=== PATIENT | female | born 1990 | race Hispanic/Latino ===

== ENCOUNTER 2018-05-22 15:49 | Emergency (ER) | payer OTHER ==
[2018-05-22 16:28] LABS: Basophils # (Auto) 0.1 K/mm3 (0.0-0.1); Basophils % (Auto) 0.9 % (0.0-1.8); Eosinophils # (Auto) 0.5 K/mm3 (0.0-0.4); Eosinophils % (Auto) 7.1 % (0.0-4.3); Hematocrit 38.3 % (30.3-42.9); Hemoglobin 12.9 gm/dl (10.1-14.3); Lymphocytes # (Auto) 2.2 K/mm3 (1.2-5.4); Lymphocytes % (Auto) 34.7 % (13.4-35.0); Mean Corpuscular HGB Conc 34 % (30-34); Mean Corpuscular Hemoglobin 31 pg (28-32); Mean Corpuscular Volume 91 fl (79-97); Monocytes # (Auto) 0.5 K/mm3 (0.0-0.8); Platelet Count 308 K/mm3 (140-440); Red Blood Count 4.21 M/mm3 (3.65-5.03); Red Cell Distribution Width 14.8 % (13.2-15.2)
[2018-05-22 16:37] LABS: BUN/Creatinine Ratio 20; Blood Urea Nitrogen 12 mg/dL (7-17); Calcium 9.1 mg/dL (8.4-10.2); Hemolysis Index 8
--- NOTE | 2018-05-22 17:37 | Emergency Department Report ---
ED Psych HPI - General Chief Complaint: Psych Stated Complaint: SUICIDAL Time Seen by Provider: 05/22/18 17:28 Source: patient Mode of arrival: Ambulatory Limitations: No Limitations - History of Present Illness Initial Comments: 27 year old with a past med hx of schizophrenia, bipolar, and depression the hospital for suicidal homicidal ideation. Just discharged from [place] 2 days ago. No physical complaints reported. She does not have a place to live. Her family is primarily an [place]. She has been in the [place] area for just a few months. She is compliant with her medications Abilify and trazodone without relief. MD Complaint: suicidal ideation, feels depressed Associated Psychiatric Symptoms: homicidal ideation (wants to eat people), visual hallucinations (people telling her to sell souls) - Related Data Allergies Allergy/AdvReac Type Severity Reaction Status Date / Time haloperidol [From Haldol] Allergy Unknown Verified 05/22/18 15:58 ED Review of Systems ROS: Stated complaint: SUICIDAL Other details as noted in HPI Comment: All other systems reviewed and negative ED Past Medical Hx - Past Medical History Previous Medical History?: Yes Hx Psychiatric Treatment: Yes (schizophrenia, bipolar, depression) - Surgical History Past Surgical History?: Yes Additional Surgical History: x 1 - Social History Smoking Status: Current Every Day Smoker Substance Use Type: Methamphetamines ED Physical Exam - General Limitations: No Limitations - Other Other exam information: General: No limitations, patient is alert in no acute distress Head exam: Atraumatic, normocephalic Eyes exam: Normal appearance ENT: Moist mucous membrane Neck exam: Normal inspection, full range of motion Respiratory exam: Clear to auscultation bilateral, no wheezes, rales, crackles Cardiovascular: Normal rate and rhythm, normal heart sounds Abdomen: Soft, nondistended, and nontender, with normal bowel sounds, no rebound, or guarding Extremity: Full range of motion normal inspection no deformity Back: Normal Inspection, full range of motion, no tenderness Neurologic: Alert, oriented x3, cranial nerves intact, no motor or sensory deficit Psychiatric: normal affect, normal mood Skin: Warm, dry, intact ED Course Vital Signs 05/22/18 05/22/18 05/22/18 15:58 16:50 19:25 Temperature 97.7 F 97.9 F Pulse Rate 92 H 98 H Respiratory 18 16 18 Rate Blood Pressure 135/85 Blood Pressure 110/71 [Left] O2 Sat by Pulse 96 98 Oximetry ED Medical Decision Making - Lab Data Result diagrams: 05/22/18 16:13 05/22/18 16:13 Lab Results 05/22/18 05/22/18 05/22/18 Range/Units 16:13 16:13 16:13 WBC (4.5-11.0) K/mm3 RBC (3.65-5.03) M/mm3 Hgb (10.1-14.3) gm/dl Hct (30.3-42.9) % MCV (79-97) fl MCH (28-32) pg MCHC (30-34) % RDW (13.2-15.2) % Plt Count (140-440) K/mm3 Lymph % (Auto) (13.4-35.0) % [place] % (Auto) (0.0-7.3) % Eos % (Auto) (0.0-4.3) % Baso % (Auto) (0.0-1.8) % Lymph # (1.2-5.4) K/mm3 [place] # (0.0-0.8) K/mm3 Eos # (0.0-0.4) K/mm3 Baso # (0.0-0.1) K/mm3 Seg Neutrophils % (40.0-70.0) % Seg Neutrophils # (1.8-7.7) K/mm3 Sodium 138 (137-145) mmol/L Potassium 4.1 (3.6-5.0) mmol/L Chloride 101.3 (98-107) mmol/L Carbon Dioxide 25 (22-30) mmol/L Anion Gap 16 mmol/L BUN 12 (7-17) mg/dL Creatinine 0.6 L (0.7-1.2) mg/dL Estimated GFR > 60 ml/min BUN/Creatinine Ratio 20 % Glucose 88 (65-100) mg/dL Calcium 9.1 (8.4-10.2) mg/dL HCG, Qual (Negative) Urine Bilirubin (Negative) Urine RBC (Auto) (0.0-6.0) /HPF U Epithel Cells (Auto) (0-13.0) /HPF Salicylates < 0.3 L (2.8-20.0) mg/dL Acetaminophen < 5.0 L (10.0-30.0) ug/mL Plasma/Serum Alcohol (0-0.07) % 05/22/18 05/22/18 05/22/18 Range/Units 16:13 16:13 16:13 WBC 6.3 (4.5-11.0) K/mm3 RBC 4.21 (3.65-5.03) M/mm3 Hgb 12.9 (10.1-14.3) gm/dl Hct 38.3 (30.3-42.9) % MCV 91 (79-97) fl MCH 31 (28-32) pg MCHC 34 (30-34) % RDW 14.8 (13.2-15.2) % Plt Count 308 (140-440) K/mm3 Lymph % (Auto) 34.7 (13.4-35.0) % [place] % (Auto) 8.0 H (0.0-7.3) % Eos % (Auto) 7.1 H (0.0-4.3) % Baso % (Auto) 0.9 (0.0-1.8) % Lymph # 2.2 (1.2-5.4) K/mm3 [place] # 0.5 (0.0-0.8) K/mm3 Eos # 0.5 H (0.0-0.4) K/mm3 Baso # 0.1 (0.0-0.1) K/mm3 Seg Neutrophils % 49.3 (40.0-70.0) % Seg Neutrophils # 3.1 (1.8-7.7) K/mm3 Sodium (137-145) mmol/L Potassium (3.6-5.0) mmol/L Chloride (98-107) mmol/L Carbon Dioxide (22-30) mmol/L Anion Gap mmol/L BUN (7-17) mg/dL Creatinine (0.7-1.2) mg/dL Estimated GFR ml/min BUN/Creatinine Ratio % Glucose (65-100) mg/dL Calcium (8.4-10.2) mg/dL HCG, Qual Negative (Negative) Urine Bilirubin (Negative) Urine RBC (Auto) (0.0-6.0) /HPF U Epithel Cells (Auto) (0-13.0) /HPF Salicylates (2.8-20.0) mg/dL Acetaminophen (10.0-30.0) ug/mL Plasma/Serum Alcohol < 0.01 (0-0.07) % 05/22/18 Range/Units 23:18 WBC (4.5-11.0) K/mm3 RBC (3.65-5.03) M/mm3 Hgb (10.1-14.3) gm/dl Hct (30.3-42.9) % MCV (79-97) fl MCH (28-32) pg MCHC (30-34) % RDW (13.2-15.2) % Plt Count (140-440) K/mm3 Lymph % (Auto) (13.4-35.0) % [place] % (Auto) (0.0-7.3) % Eos % (Auto) (0.0-4.3) % Baso % (Auto) (0.0-1.8) % Lymph # (1.2-5.4) K/mm3 [place] # (0.0-0.8) K/mm3 Eos # (0.0-0.4) K/mm3 Baso # (0.0-0.1) K/mm3 Seg Neutrophils % (40.0-70.0) % Seg Neutrophils # (1.8-7.7) K/mm3 Sodium (137-145) mmol/L Potassium (3.6-5.0) mmol/L Chloride (98-107) mmol/L Carbon Dioxide (22-30) mmol/L Anion Gap mmol/L BUN (7-17) mg/dL Creatinine (0.7-1.2) mg/dL Estimated GFR ml/min BUN/Creatinine Ratio % Glucose (65-100) mg/dL Calcium (8.4-10.2) mg/dL HCG, Qual (Negative) Urine Bilirubin Neg (Negative) Urine RBC (Auto) 1.0 (0.0-6.0) /HPF U Epithel Cells (Auto) 4.0 (0-13.0) /HPF Salicylates (2.8-20.0) mg/dL Acetaminophen (10.0-30.0) ug/mL Plasma/Serum Alcohol (0-0.07) % - Medical Decision Making suicidal 1013/transfer form signed uds + for amphetamine - Differential Diagnosis suicidal, homicidal, schizophrenia, psychosis, medication noncompliance Critical Care Time: No Critical care attestation.: If time is entered above; I have spent that time in minutes in the direct care of this critically ill patient, excluding procedure time. ED Disposition Clinical Impression: Suicidal ideations, Psychosis, Homicidal ideation, Schizophrenia, Medical clearance for psychiatric admission, Amphetamine abuse Disposition: DC/TX-65 PSY HOSP/PSY UNIT Is pt being admited?: No Does the pt Need Aspirin: No Condition: Stable Time of Disposition: 00:57
[2018-05-22] MEDS ORDERED: NACL 0.9% 1000 ML 1,000 ML IV ONE (23:24)
[2018-05-23 00:15] LABS: Bilirubin,Urine NEG (Negative); Blood,Urine NEG (Negative); Color,Urine Yellow (Yellow); Mucus,Urine FEW /HPF; Protein,Urine <15 mg/dL mg/dL (Negative); Urobilinogen,Urine < 2.0 mg/dL (<2.0)
[2018-05-23 00:24] LABS: Benzodiazepines Screen,Urine PRESUMPTIVE NEGATIVE; Cannabinoid Screen,Urine PRESUMPTIVE NEGATIVE; Cocaine Screen,Urine PRESUMPTIVE NEGATIVE; Methadone Screen,Urine PRESUMPTIVE NEGATIVE; Opiate Screen,Urine PRESUMPTIVE NEGATIVE
[2018-05-23 00:38] LABS: Amphetamine Screen,Urine PRESUMPTIVE POSITIVE
--- NOTE | 2018-05-23 13:33 | Consultation ---
History of Present Illness - Reason for Consult Consult date: 05/23/18 Reason for consult: Initial Psychiatric Evaluation - Chief Complaint Chief complaint: " Suicidal and I want to eat people." - History of Present Psychiatric Illness Patient is a 27 year old female with a PPHx of schizophrenia, bipolar , and depression that presents to the emergency room for suicidal/ homicidal ideations and delusions. Patient was discharged from [facility] 2 days ago. No physical complaints reported. She does not have a place to live. Her family is primarily in [place]. She has been in the [facility] for just a few months. Today patient presents anxious and labile during the assessment. She reports, " I'm suicidal and want to eat people." Symptoms have been present x 1 day. Per patient " pills do not work for me." Also patient endorses auditory hallucinations and paranoid delusions. Per patient she is having command type auditory hallucinations telling her to kill herself. Patient seen responding to internal stimuli, laughing inappropriately. She reports decrease energy, sleep, and appetite. She denies homicidal ideations. Current psychiatric medications: Abilify- patient unable to remember current dose. Past psychiatric history: Schizophrenia (childhood); more than 5 previous inpatient psychiatric hospitalizations ([place], [place]); no outpatient psychiatrist; pt unable to verbalize whether or not she had any previous suicide attempts. Past psychiatric medication trials: Seroquel, lithium, Depakote, Luvox, Haldol, Haldol Dec. ` History of trauma/abuse: Patient denies sexual, physical, and mental abuse. Drug/alcohol abuse history: Patient denies history of drug and alcohol abuse. UDS positive for amphetamines. Social history: High school-highest level of education; homeless; poor support system-family in [place]. Family history: Patient denies family history of psychiatric illness or substance abuse. Medications and Allergies Allergies Allergy/AdvReac Type Severity Reaction Status Date / Time haloperidol [From Haldol] Allergy Unknown Verified 05/22/18 15:58 Mental Status Exam - Vital signs Last Vital Signs Temp 98.4 F 05/23/18 09:15 Pulse 87 05/23/18 09:15 Resp 16 05/23/18 09:15 BP 108/6 05/23/18 09:15 Pulse Ox 99 05/23/18 09:15 - Exam Narrative exam: Mental Status Exam General Appearance: Casually Dressed-hospital gown Eye Contact: Intermittent Orientation: Alert and oriented x 1 ( person) Attitude/Behavior: Cooperative Sensorium: Distracted Psychomotor & Musculoskeletal Activity: Sitting up in bed Mood: " Fine." Labile Affect: Incongruent Speech/Language: Normal rate and tone Thought Processes: Disorganized Thought Content: Impoverished, paranoid Perception: + auditory hallucinations " telling me to kill myself" Concentration/Attention: Impaired Suicidal Ideations/Plan: + suicidal ideation secondary to CAH Homicidal Ideations/Plan: + homicidal ideation " to eat people" Judgment: Poor Insight: Poor Results Result Diagrams: 05/22/18 16:13 05/22/18 16:13 Abnormal lab results 05/22/18 05/22/18 05/22/18 Range/Units 16:13 16:13 16:13 [place] % (Auto) (0.0-7.3) % Eos % (Auto) (0.0-4.3) % Eos # (0.0-0.4) K/mm3 Creatinine 0.6 L (0.7-1.2) mg/dL Salicylates < 0.3 L (2.8-20.0) mg/dL Acetaminophen < 5.0 L (10.0-30.0) ug/mL 05/22/18 Range/Units 16:13 [place] % (Auto) 8.0 H (0.0-7.3) % Eos % (Auto) 7.1 H (0.0-4.3) % Eos # 0.5 H (0.0-0.4) K/mm3 Creatinine (0.7-1.2) mg/dL Salicylates (2.8-20.0) mg/dL Acetaminophen (10.0-30.0) ug/mL All other labs normal. Assessment and Plan Assessment and plan: Impression: PPHx Schizophrenia. Today patient presents anxious and labile during the assessment. She endorses suicidal ideation, command auditory hallucinations, and paranoid delusions. She denies HI's and VH's. Recommendation/plan: 1. Continued 1013 and assist with placement to inpatient psychiatric services. 2. Risperdal 0.5mg po BID for mood/psychosis. Discussed metabolic side effects. 3. Attempt to gain collateral to determine proper disposition. 4. Will monitor psychosis, mood, sleep, appetite, compliance, and side effects.
[2018-05-23] MEDS: RisperDAL PO SCH (22:03)
[2018-05-24] MEDS: RisperDAL PO SCH ×2 (09:45→22:05)
--- NOTE | 2018-05-24 12:21 | Progress Note ---
Subjective - Reason for Consult Consult date: 05/24/18 Reason for consult: Psychiatry Follow-up - Chief Complaint Chief complaint: "Yes I am here" 27 year old female presenting to the ER for SI/HI's with delusions. The patient was discharged from [place] 2 days ago. Today the patient is cooperative, but tangent during the assessment. She verbalized hyper orthodox content throughout the interview. She stated that "human flesh" is good for the soul. She continue to endorse SI;s when asked. She denies HI's and AVH's. No indications of side effects of her medication. Mental Status Exam - Vital signs Last Vital Signs Temp 98.4 F 05/24/18 10:20 Pulse 78 05/24/18 10:20 Resp 20 05/24/18 10:20 BP 105/63 05/24/18 10:20 Pulse Ox 98 05/24/18 10:20 - Exam Narrative exam: MSE: Appearance: calm, cooperative Behavior: regular eye contact Speech: regular rate and tone Mood: labile Affect: congruent to mood Thought Process: tangential Thought Content: denies SI/HI's and AVH's, delusional, grandiose Motor Activity: lying in bed Cognition: A/O x 3 Insight: poor Judgment: poor Assessment and Plan Impression: Schizophrenia. Substance Use DO (amphetamine). Today patient is calm , but tangent during the assessment. She endorses SI's. DDx: Schizoaffective DO, Bipolar DO with psychosis, R/O Substance Induced Psychosis/Mood DO Recommendation/plan: Continued 1013 with placement to inpatient psy services. Continue Risperdal 0.5 mg PO BID for mood/psychosis. Attempted to discuss possible metabolic side effects Risperdal with the patient.
[2018-05-25] MEDS: RisperDAL PO SCH ×2 (11:49→21:37)
--- NOTE | 2018-05-25 14:45 | Progress Note ---
Subjective - Reason for Consult Consult date: 05/25/18 Reason for consult: Psychiatry Follow-up - Chief Complaint Chief complaint: "What do you want" 27 year old female presenting to the ER for SI/HI's with delusions. The patient was discharged from [place] [place] 2 days ago. Today the patient is cooperative during the assessment. She stated that she is suicidal, but cannot explain why. She continue to be tangent throughout the interview and had to be redirected several times to keep her on topic. She denies HI's and AVH's. No indications of side effects of her medication. Mental Status Exam - Vital signs Last Vital Signs Temp 98.2 F 05/25/18 10:56 Pulse 64 05/25/18 10:56 Resp 20 05/25/18 10:58 BP 110/72 05/25/18 10:56 Pulse Ox 99 05/25/18 10:58 - Exam Narrative exam: MSE: Appearance: cooperative Behavior: regular eye contact Speech: regular rate and tone Mood: labile Affect: congruent to mood Thought Process: tangential Thought Content: denies HI's and AVH's Motor Activity: lying in bed Cognition: A/O x 3 Insight: poor Judgment: poor Assessment and Plan Impression: Schizophrenia. Substance Use DO (amphetamine). Today patient is cooperative during the assessment. She endorses SI's. DDx: Schizoaffective DO, Bipolar DO with psychosis, R/O Substance Induced Psychosis/Mood DO Recommendation/plan: Continued 1013 with placement to inpatient psy services. Increase Risperdal to 1 mg PO BID for mood/psychosis. Attempted to discuss possible metabolic side effects Risperdal with the patient.
[2018-05-26] MEDS: RisperDAL PO SCH ×2 (09:46→22:17)
[2018-05-26] MEDS ORDERED: ATIVAN ONE (10:14)
[2018-05-26] MEDS ORDERED: GEODON IM ONE ×2 (10:22→10:35)
[2018-05-26] MEDS ORDERED: WATER FOR INJ (PF) ONE (10:22)
[2018-05-26] MEDS ORDERED: ATIVAN IM ONE (10:36)
[2018-05-26] MEDS ORDERED: TORADOL ONE (13:58)
--- NOTE | 2018-05-26 19:28 | Progress Note ---
Subjective - Reason for Consult Consult date: 05/26/18 Reason for consult: follow up - Chief Complaint Chief complaint: "I'm ok" 27 year old female presenting to the ER for SI/HI's with delusions. The patient was discharged from [facility] 2 days prior to arrival at [facility]. Today the patient is cooperative during the assessment. She stated that she is suicidal and recently used methamphetamine. She was observed responding to internal stimuli when the interview ended. She denies HI's and AVH's. No indications of side effects of her medication. Mental Status Exam - Vital signs Last Vital Signs Temp 98.1 F 05/26/18 10:37 Pulse 99 H 05/26/18 10:37 Resp 16 05/26/18 10:37 BP 152/83 05/26/18 10:37 Pulse Ox 97 05/26/18 10:37 - Exam Narrative exam: MSE: Appearance: cooperative Behavior: regular eye contact Speech: regular rate and tone Mood: labile Affect: congruent to mood Thought Process: tangential Thought Content: denies HI. responding to internal stimuli/suicidal ideation Motor Activity: lying in bed Cognition: A/O x 3 Insight: poor Judgment: poor Assessment and Plan Impression: Schizophrenia. Substance Use DO (amphetamine). Today patient is cooperative during the assessment. She endorses SI. Responding to internal stimuli DDx: Schizoaffective DO, Bipolar DO with psychosis, R/O Substance Induced Psychosis/Mood DO Recommendation/plan: Continued 1013 with placement to inpatient psy services. Continue Risperdal to 1 mg PO BID for mood/psychosis.
[2018-05-27] MEDS: RisperDAL PO SCH ×2 (09:44→22:00)
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
[2018-05-27 20:15] VITALS: BP 123/75
== END 2018-05-28 06:18 ==
LOC: EEVIPCON 15:49 → ED 15:49
DX: F20.9 Schizophrenia, unspecified (principal); F15.10 Other stimulant abuse, uncomplicated; F41.9 Anxiety disorder, unspecified; F31.9 Bipolar disorder, unspecified; F29 Unspecified psychosis not due to a substance or known physiological condition; F25.9 Schizoaffective disorder, unspecified; F17.200 Nicotine dependence, unspecified, uncomplicated; Z88.5 Allergy status to narcotic agent
CPT/HCPCS: 36415; 80048; 80307; 81001; 84703; 85025; 96360; 96372; 99285; G0480; J1885; J2060; J3486; 80320

== ENCOUNTER 2018-06-05 23:30 | Emergency (ER) | payer SELFPAY ==
[2018-06-06] MEDS ORDERED: NACL 0.9% 1000 ML 1,000 ML IV ONE (00:01)
[2018-06-06 01:06] LABS: Albumin 4.4 g/dL (3.9-5); BUN/Creatinine Ratio 19; Blood Urea Nitrogen 13 mg/dL (7-17); Calcium 9.5 mg/dL (8.4-10.2); Hemolysis Index 293; Lipase 40 units/L (13-60)
[2018-06-06 01:15] LABS: Basophils # (Auto) 0.1 K/mm3 (0.0-0.1); Basophils % (Auto) 0.9 % (0.0-1.8); Eosinophils # (Auto) 0.4 K/mm3 (0.0-0.4); Eosinophils % (Auto) 4.5 % (0.0-4.3); Hematocrit 40.4 % (30.3-42.9); Hemoglobin 13.6 gm/dl (10.1-14.3); Lymphocytes # (Auto) 3.8 K/mm3 (1.2-5.4); Lymphocytes % (Auto) 43.1 % (13.4-35.0); Mean Corpuscular HGB Conc 34 % (30-34); Mean Corpuscular Hemoglobin 31 pg (28-32); Mean Corpuscular Volume 93 fl (79-97); Monocytes # (Auto) 0.7 K/mm3 (0.0-0.8); Monocytes % (Auto) 7.5 % (0.0-7.3); Platelet Count 317 K/mm3 (140-440); Red Blood Count 4.35 M/mm3 (3.65-5.03); Red Cell Distribution Width 14.6 % (13.2-15.2)
[2018-06-06 01:26] LABS: Alanine Aminotransferase 11 units/L (7-56)
--- NOTE | 2018-06-06 02:49 | Emergency Department Report ---
HPI - General Chief Complaint: Abdominal Pain Time Seen by Provider: 06/06/18 02:34 - HPI HPI: 27-year-old female presents to the emergency department with a complaint of feeling depressed and suicidal. She does not have any specific plan as to how she would harm herself. She does have a history of schizophrenia , bipolar disorder and says that she just recently ran out of her Abilify. She does admit to hearing voices but denies any visual hallucinations. Patient says that she is feeling depressed and suicidal because her boyfriend just broke up with her and she no longer has anywhere to stay. She says "I just don' t want to be here any longer." ED Past Medical Hx - Past Medical History Previous Medical History?: Yes Hx Psychiatric Treatment: Yes (schizophrenia, bipolar, depression) - Surgical History Past Surgical History?: Yes Additional Surgical History: x 1 - Social History Smoking Status: Current Every Day Smoker Substance Use Type: Alcohol, Marijuana - Medications Home Medications: Home Medications Medication Instructions Recorded Confirmed Last Taken Type No Known Home Medications [No 05/23/18 05/23/18 Unknown History Reported Home Medications] ED Review of Systems ROS: Stated complaint: VOMITING Other details as noted in HPI Comment: All other systems reviewed and negative Constitutional: denies: chills, fever Eyes: denies: eye pain, eye discharge, vision change ENT: denies: ear pain, throat pain Respiratory: denies: cough, shortness of breath, wheezing Cardiovascular: denies: chest pain, palpitations Gastrointestinal: denies: abdominal pain, nausea, diarrhea Genitourinary: denies: urgency, dysuria, discharge Musculoskeletal: denies: back pain, joint swelling, arthralgia Skin: denies: rash, lesions Neurological: denies: headache, weakness, paresthesias Psychiatric: depression, auditory hallucinations, suicidal thoughts. denies: homicidal thoughts Physical Exam - Physical Exam Vital Signs: Vital Signs 06/05/18 06/05/18 06/06/18 23:42 23:56 02:17 Temperature 98.5 F 98.5 F 97.6 F Pulse Rate 91 H 94 H 71 Respiratory 18 18 18 Rate Blood Pressure 135/85 135/85 Blood Pressure 98/69 [Left] O2 Sat by Pulse 96 96 100 Oximetry Physical Exam: GENERAL: The patient is well-developed well-nourished. HENT: Normocephalic. Atraumatic. Patient has moist mucous membranes. EYES: Extraocular motions are intact. NECK: Supple. Trachea is midline. CHEST/LUNGS: Clear to auscultation. There is no respiratory distress noted. HEART/CARDIOVASCULAR: Regular. There is no tachycardia. There is no murmur. ABDOMEN: Abdomen is soft, nontender. Patient has normal bowel sounds. There is no abdominal distention. SKIN: Skin is warm and dry. NEURO: The patient is awake, alert, and oriented. The patient is cooperative. The patient has no focal neurologic deficits. The patient has normal speech. MUSCULOSKELETAL: There is no tenderness or deformity. There is no limitation range of motion. There is no evidence of acute injury. PSYCH: Patient has a flat affect. ED Course Vital Signs 06/05/18 06/05/18 06/06/18 23:42 23:56 02:17 Temperature 98.5 F 98.5 F 97.6 F Pulse Rate 91 H 94 H 71 Respiratory 18 18 18 Rate Blood Pressure 135/85 135/85 Blood Pressure 98/69 [Left] O2 Sat by Pulse 96 96 100 Oximetry ED Medical Decision Making - Lab Data Result diagrams: 06/06/18 00:34 06/06/18 03:30 - Medical Decision Making Patient presents with complaints of depression and suicidal ideations without any specific plan. For this reason the patient has been made a 1013. Labs have been mostly unremarkable. At first she appeared to have some mild hyperkalemia but a repeat potassium level shows it to be normal. The rest the labs have been unremarkable. We are awaiting her urinalysis and urine drug screen. If she has a urinary tract infection, she will be started on antibiotics. She does not appear acutely intoxicated. Vital signs stable throughout her ED course thus far. She appears medically stable for psychiatric placement. - Differential Diagnosis depression, bipolar disorder, schizophrenia, schizoaffective Critical Care Time: No Critical care attestation.: If time is entered above; I have spent that time in minutes in the direct care of this critically ill patient, excluding procedure time. ED Disposition Clinical Impression: Suicidal ideations, Medical clearance for psychiatric admission Depression Qualifiers: Depression Type: unspecified Qualified Code(s): F32.9 - Major depressive disorder, single episode, unspecified Disposition: DC/TX-65 PSY HOSP/PSY UNIT Is pt being admited?: No Condition: Stable Instructions: Abdominal Pain (ED) Referrals: PRIMARY CARE, [Primary Care Provider] - 3-5 Days Time of Disposition: 04:57
[2018-06-06 06:34] LABS: HCG Qualitative,Urine Negative (Negative)
[2018-06-06 06:36] LABS: Bacteria,Urine 1+ /HPF (Negative); Bilirubin,Urine NEG (Negative); Blood,Urine NEG (Negative); Color,Urine Yellow (Yellow); Mucus,Urine FEW /HPF; Protein,Urine <15 mg/dL mg/dL (Negative); Urobilinogen,Urine < 2.0 mg/dL (<2.0)
[2018-06-06 06:50] LABS: Amphetamine Screen,Urine PRESUMPTIVE NEGATIVE; Benzodiazepines Screen,Urine PRESUMPTIVE NEGATIVE; Cannabinoid Screen,Urine PRESUMPTIVE NEGATIVE; Cocaine Screen,Urine PRESUMPTIVE NEGATIVE; Methadone Screen,Urine PRESUMPTIVE NEGATIVE; Opiate Screen,Urine PRESUMPTIVE NEGATIVE
--- NOTE | 2018-06-06 13:25 | Consultation ---
History of Present Illness - Reason for Consult Consult date: 06/06/18 Reason for consult: Initial Psychiatric Evaluation Medications and Allergies Allergies Allergy/AdvReac Type Severity Reaction Status Date / Time haloperidol [From Haldol] Allergy Unknown Verified 05/22/18 15:58 Home Medications Medication Instructions Recorded Confirmed Last Taken Type No Known Home Medications [No 05/23/18 05/23/18 Unknown History Reported Home Medications] Mental Status Exam - Vital signs Last Vital Signs Temp 98.3 F 06/06/18 10:00 Pulse 81 06/06/18 10:00 Resp 18 06/06/18 10:00 BP 100/62 06/06/18 10:00 Pulse Ox 98 06/06/18 10:00 Results Result Diagrams: 06/06/18 00:34 06/06/18 03:30 Abnormal lab results 06/06/18 06/06/18 06/06/18 Range/Units 00:00 00:00 00:00 Lymph % (Auto) (13.4-35.0) % [place] % (Auto) (0.0-7.3) % Eos % (Auto) (0.0-4.3) % Sodium 135 L (137-145) mmol/L Potassium 5.6 H (3.6-5.0) mmol/L Urine WBC (Auto) (0.0-6.0) /HPF U Epithel Cells (Auto) (0-13.0) /HPF Salicylates < 0.3 L (2.8-20.0) mg/dL Acetaminophen < 5.0 L (10.0-30.0) ug/mL 06/06/18 06/06/18 Range/Units 00:34 04:08 Lymph % (Auto) 43.1 H (13.4-35.0) % [place] % (Auto) 7.5 H (0.0-7.3) % Eos % (Auto) 4.5 H (0.0-4.3) % Sodium (137-145) mmol/L Potassium (3.6-5.0) mmol/L Urine WBC (Auto) 25.0 H (0.0-6.0) /HPF U Epithel Cells (Auto) 15.0 H (0-13.0) /HPF Salicylates (2.8-20.0) mg/dL Acetaminophen (10.0-30.0) ug/mL All other labs normal.
--- NOTE | 2018-06-06 13:28 | Consultation ---
History of Present Illness - Reason for Consult Consult date: 06/06/18 Reason for consult: Initial Psychiatric Evaluation - Chief Complaint Chief complaint: " I hear voices" - History of Present Psychiatric Illness Patient is a 27 year old female with a PPHx of schizophrenia, bipolar , and depression that presents to the emergency room for suicidal ideations and auditory hallucinations. Patient is known to provider. Today patient is cooperative but guarded/evasive during the assessment. Patient verbalizes that her boyfriend recently broke up with her due to auditory hallucinations. She no longer has a place to live. She reports, "I hear voices telling me to do crazy stuff. I can't remember what they're saying." Patient was recently discharged from the hospital. Since her release patient expresses that she has been compliant with her medication. She believes that her symptoms are controlled with her current drug regimen. She denies HI's. She reports decrease energy, appetite, and sleep. Patient denies current drug use. Current psychiatric medications: Abilify- patient unable to remember current dose. Last hospitalization- Risperdal 1mg po BID. Past psychiatric history: Schizophrenia (childhood); multiple previous previous inpatient psychiatric hospitalizations ([facility]); no outpatient psychiatrist; pt unable to verbalize whether or not she had any previous suicide attempts. Past psychiatric medication trials: Seroquel, lithium, Depakote, Luvox, Haldol, Haldol Dec. ` History of trauma/abuse: Patient denies sexual, physical, and mental abuse. Drug/alcohol abuse history: Patient denies history of drug and alcohol abuse. UDS negative. Social history: High school-highest level of education; homeless; poor support system-family in [place]. Family history: Patient denies family history of psychiatric illness or substance abuse. Medications and Allergies Allergies Allergy/AdvReac Type Severity Reaction Status Date / Time haloperidol [From Haldol] Allergy Unknown Verified 05/22/18 15:58 Home Medications Medication Instructions Recorded Confirmed Last Taken Type No Known Home Medications [No 05/23/18 05/23/18 Unknown History Reported Home Medications] Mental Status Exam - Vital signs Last Vital Signs Temp 98.3 F 06/06/18 10:00 Pulse 81 06/06/18 10:00 Resp 18 06/06/18 10:00 BP 100/62 06/06/18 10:00 Pulse Ox 98 06/06/18 10:00 - Exam Narrative exam: Mental Status Exam General Appearance: Casually Dressed-hospital gown Eye Contact: Intermittent Orientation: Alert and oriented x 3 ( person, place, and time) Attitude/Behavior: Cooperative, evasive, guarded Sensorium: Distracted Psychomotor & Musculoskeletal Activity: Laying in bed Mood: Depressed Affect: Incongruent Speech/Language: Normal rate and tone Thought Processes: Disorganized-less Thought Content: Impoverished, paranoid Perception: + auditory hallucinations " telling me to do crazy stuff" Concentration/Attention: Impaired Suicidal Ideations/Plan: + suicidal ideation - no plan Homicidal Ideations/Plan: Patient denies Judgment: Poor Insight: Poor Results Result Diagrams: 06/06/18 00:34 06/06/18 03:30 Abnormal lab results 06/06/18 06/06/18 06/06/18 Range/Units 00:00 00:00 00:00 Lymph % (Auto) (13.4-35.0) % [place] % (Auto) (0.0-7.3) % Eos % (Auto) (0.0-4.3) % Sodium 135 L (137-145) mmol/L Potassium 5.6 H (3.6-5.0) mmol/L Urine WBC (Auto) (0.0-6.0) /HPF U Epithel Cells (Auto) (0-13.0) /HPF Salicylates < 0.3 L (2.8-20.0) mg/dL Acetaminophen < 5.0 L (10.0-30.0) ug/mL 06/06/18 06/06/18 Range/Units 00:34 04:08 Lymph % (Auto) 43.1 H (13.4-35.0) % [place] % (Auto) 7.5 H (0.0-7.3) % Eos % (Auto) 4.5 H (0.0-4.3) % Sodium (137-145) mmol/L Potassium (3.6-5.0) mmol/L Urine WBC (Auto) 25.0 H (0.0-6.0) /HPF U Epithel Cells (Auto) 15.0 H (0-13.0) /HPF Salicylates (2.8-20.0) mg/dL Acetaminophen (10.0-30.0) ug/mL All other labs normal. Assessment and Plan Assessment and plan: Impression: Schizophrenia. Today patient is cooperative but guarded/evasive during the assessment. Patient endorses passive suicidal ideations and auditory hallucinations telling her to do crazy stuff. Paranoid delusions are noted. She denies HI's and VH's. UDS negative. DDx: Schizoaffective DO, Bipolar DO with psychosis, R/O Substance Induced Psychosis/Mood DO Recommendation/plan: 1. Continue 1013 with placement to inpatient psychiatric services. 2. Restart Risperdal 0.5 mg PO BID for mood/psychosis. Recommended long acting injectable, Invega Sustenna. 3. Monitor psychosis, mood, sleep, appetite, compliance, and side effects.
[2018-06-06] MEDS ORDERED: RisperDAL PO SCH (22:00)
[2018-06-07 08:55] VITALS: BP 103/73
== END 2018-06-07 08:58 ==
LOC: ED 23:30
DX: F31.9 Bipolar disorder, unspecified (principal); F20.9 Schizophrenia, unspecified; F17.200 Nicotine dependence, unspecified, uncomplicated; F12.90 Cannabis use, unspecified, uncomplicated
CPT/HCPCS: 36415; 80053; 80307; 81001; 81025; 83690; 84132; 85025; 99285; G0480; 80320